=== PATIENT | female | born 1980 | race Caucasian/White ===

== ENCOUNTER 2016-11-04 23:56 | Emergency (ER) | payer OTHER ==
[~2016-11-04] VITALS: Ht 162.6 cm; Wt 120.5 kg
[~2016-11-04 23:56] MED LIST: ALLEGRA-D 241 TABLET PO; ATARAX,VISTARIL50 MG PO; CLEOCIN300 MG PO; DECADRON4 MG PO; FLEXERIL10 MG PO; IBUPROFEN600 MG PO; LAMICTAL25 MG PO; MOBIC7.5 MG PO; MULTIVITAMIN1 EAC1 PO; NOHOMEMEDS; PREDNISONE20 MG PO; PRILOSEC OTC20 MG PO; PRINIVIL10 MG PO; VITAMIN B122500 MCG PO; VITAMIN C1000 MG PO; XANAX0.5 MG PO; XYZAL5 MG PO; ZANTAC150 MG PO; ZANTAC75 MG PO; ZYRTEC5 MG PO; allegra; omeprazole
[2016-11-05 00:36] LABS: HEMATOCRIT 45.5 % (36.0-46.0); MCH 30.4 PG (29.0-34.0); MCHC 36.3 G/DL (30.0-36.0); MCV 83.9 FL (83-99); PLATELET COUNT 269 K/uL (156-360); RBC DIS.WIDTH-CV 12.7 % (11.8-14.6); RBC DIS.WIDTH-SD 38.7 % (39-53); RED BLOOD COUNT 5.42 M/uL (3.80-5.20); WHITE BLOOD COUNT 7.3 K/uL (4.1-10.2)
[2016-11-05 00:48] LABS: CHLORIDE 96 mEq/L (99-109); POTASSIUM 3.8 mEq/L (3.7-5.4); SODIUM 130 mEq/L (136-147)
[2016-11-05 00:51] LABS: GLUCOSE 347 mg/dL (70-99)
[2016-11-05 00:52] LABS: ANION GAP 20 MEQ/L (2-14)
[2016-11-05 00:53] LABS: TOTAL BILIRUBIN 0.4 mg/dL (0.0-1.0)
[2016-11-05 00:54] LABS: ALKALINE PHOSPHATASE 87 IU/L (3-129)
[2016-11-05 00:55] LABS: GFR ESTIMATE (CALCULATED) > 59 mL/min/
[2016-11-05 00:56] LABS: UREA NITROGEN (BUN) 11 mg/dL (9-23)
[2016-11-05 00:58] LABS: LIPASE 37 U/L (1.0-51.0)
[2016-11-05 01:03] LABS: QUANTITATIVE HCG < 4.0 MIU/ML
[2016-11-05 01:37] LABS: BASOPHIL COUNT 0.1 K/uL (0-0.1); EOSINOPHIL COUNT 0.2 K/uL (0-0.3); IMMATURE GRANULOCYTE (%) 0.4 % (0.0-0.7); IMMATURE GRANULOCYTE COUNT 0.3 K/uL; LYMPHOCYTE COUNT 2.5 K/uL (1.0-2.8); MONOCYTE COUNT 0.2 K/uL (0-0.8); NEUTROPHIL (%) 59.7 % (45-76); NEUTROPHIL COUNT 4.4 K/uL (1.8-6.4)
[2016-11-05] MEDS ORDERED: GLUCOPHAGE500 MG PO (04:35)
[2016-11-05 04:39] LABS: POINT-OF-CARE METER ID UU13113747; POINT-OF-CARE USER ID NUTMMM10
[2016-11-05 04:48] LABS: CHLORIDE 102 mEq/L (99-109); POTASSIUM 3.8 mEq/L (3.7-5.4); SODIUM 132 mEq/L (136-147)
[2016-11-05 04:50] LABS: GLUCOSE 285 mg/dL (70-99)
[2016-11-05 04:51] LABS: ANION GAP 16 MEQ/L (2-14)
[2016-11-05 04:54] LABS: GFR ESTIMATE (CALCULATED) > 59 mL/min/
[2016-11-05 04:55] LABS: UREA NITROGEN (BUN) 10 mg/dL (9-23)
[2016-11-05 05:40] LABS: POINT-OF-CARE METER ID UU13113747; POINT-OF-CARE USER ID NUTMMM10
[2016-11-05 06:09] VITALS: BP 102/71
== END 2016-11-05 06:13 | disposition left against medical advice (07) ==
LOC: EME 23:56
PROVIDERS: Emergency Medicine
DX: R10.9 Unspecified abdominal pain (principal); E11.9 Type 2 diabetes mellitus without complications; N83.201 Unspecified ovarian cyst, right side; K21.9 Gastro-esophageal reflux disease without esophagitis; F17.200 Nicotine dependence, unspecified, uncomplicated
CPT/HCPCS: 74177; 80048 91; 80053; 81003; 82009; 82248; 82948; 83605; 83690; 84702; 85025; 85027; 99281; 99285; J1170; J1200; J1885; J2405; J7030

== ENCOUNTER 2017-12-27 23:09 | Emergency (ER) | payer SELFPAY ==
[~2017-12-27] VITALS: Ht 162.6 cm; Wt 114.3 kg
[~2017-12-27 23:09] MED LIST changes: +GLUCOPHAGE500 MG PO
[2017-12-27 23:28] LABS: APPEARANCE SL.HAZY ((CLEAR)); BILIRUBIN NEGATIVE; BLOOD LARGE; COLOR YELLOW ((YELLOW)); GLUCOSE (STRIP) NEGATIVE; KETONES NEGATIVE; LEUKOCYTES NEGATIVE; NITRITE NEGATIVE; PROTEIN (STRIP) 30; SPECIFIC GRAVITY 1.009 (1.000-1.030); UROBILINOGEN 0.2 MG/DL (0.2-1.0)
[2017-12-27 23:57] LABS: RED BLOOD CELLS TNTC /HPF (0-5)
[2017-12-27 23:58] LABS: BACTERIA NONE SEEN /HPF; EPITHELIAL CELLS 1+ /HPF; MUCUS 1+ /LPF; UCUL ADDED? YES; WHITE BLOOD CELLS 0-5 /HPF (0-5)
[2017-12-28 00:04] LABS: HEMATOCRIT 43.9 % (36.0-46.0); HEMOGLOBIN 15.8 G/DL (11.9-15.5); MCH 30.2 PG (29.0-34.0); MCV 83.8 FL (83-99); PLATELET COUNT 229 K/uL (156-360); RBC DIS.WIDTH-SD 36.5 % (39-53); RED BLOOD COUNT 5.24 M/uL (3.80-5.20); WHITE BLOOD COUNT 6.5 K/uL (4.1-10.2)
[2017-12-28 00:11] LABS: ALBUMIN 3.9 g/dL (3.2-4.8)
[2017-12-28 00:12] LABS: CHLORIDE 106 mEq/L (99-109); SODIUM 136 mEq/L (136-147)
[2017-12-28 00:14] LABS: GLUCOSE 153 mg/dL (70-99); TOTAL PROTEIN 6.9 g/dL (6.4-8.3)
[2017-12-28 00:16] LABS: TOTAL BILIRUBIN 0.6 mg/dL (0.0-1.0)
[2017-12-28 00:17] LABS: ALKALINE PHOSPHATASE 85 IU/L (3-129)
[2017-12-28 00:18] LABS: CREATININE 0.7 mg/dL (0.6-1.3); GFR ESTIMATE (CALCULATED) > 59 mL/min/
[2017-12-28 00:19] LABS: AST (GOT) 21 IU/L (2-34); UREA NITROGEN (BUN) 9 mg/dL (9-23)
[2017-12-28 00:21] LABS: ALT (GPT) 24 IU/L (3-49)
[2017-12-28 00:29] LABS: QUANTITATIVE HCG < 4.0 MIU/ML
[2017-12-28] MEDS ORDERED: ZITHROMAX Z-PA250 MG PO (01:07)
[2017-12-28 01:20] VITALS: BP 138/97
== END 2017-12-28 01:30 | disposition home or self-care (01) ==
LOC: EME 23:09
PROVIDERS: Nurse Practitioner Family
DX: J40 Bronchitis, not specified as acute or chronic (principal); B34.9 Viral infection, unspecified; F17.200 Nicotine dependence, unspecified, uncomplicated; E11.9 Type 2 diabetes mellitus without complications; Z79.84 Long term (current) use of oral hypoglycemic drugs; K21.9 Gastro-esophageal reflux disease without esophagitis; F32.9 Major depressive disorder, single episode, unspecified; F41.9 Anxiety disorder, unspecified; Z88.0 Allergy status to penicillin; Z88.5 Allergy status to narcotic agent; Z91.040 Latex allergy status
CPT/HCPCS: 71046; 80053; 81003; 84702; 85027; 87086; 87502; 94640; 99281; 99284